=== PATIENT | female | born 1950 | race Caucasian/White ===

== ENCOUNTER 2016-08-19 15:13 | Emergency (ER) | payer MEDICARE, OTHER ==
[2016-08-19] MEDS ORDERED: PROMETHAZINE 25 MG/ML VIAL ONE (19:26)
[2016-08-19] MEDS ORDERED: SODIUM CHLORIDE 0.9% 1,000 ML ONE (19:26)
[2016-08-19] MEDS ORDERED: SODIUM CHLORIDE 0.9% 50 ML IV ONE (19:26)
== END 2016-08-19 21:33 | disposition home or self-care (01) ==
LOC: ER 15:13
DX: E86.0 Dehydration (principal); R53.1 Weakness; Z79.899 Other long term (current) drug therapy
CPT/HCPCS: 36415; 80053; 81001; 85025; 87088; 96361; 96365; 99283; J2550